=== PATIENT | male | born 1980 | race Caucasian/White ===

== ENCOUNTER 2024-01-12 18:35 | Emergency (ER) | payer BC ==
[~2024-01-12] VITALS: Ht 182.9 cm; Wt 72.7 kg
[~2024-01-12 18:35] MED LIST: BACTRIM DS 8001 TAB PO; PERCOCET 325 MG1 TA2 PO
[2024-01-12 18:39] VITALS: TEMP 98.6
[2024-01-12] MEDS ORDERED: Ondansetron 4 MG/2 ML VIAL IV ONE (19:00)
[2024-01-12] MEDS ORDERED: Bacitracin Topical Oint 30 GM TUBE TOP ONE (19:00)
[2024-01-12] MEDS ORDERED: NS 1,000 ML IV ONE (19:00)
[2024-01-12] MEDS ORDERED: Morphine 4 MG/ML VIAL IV ONE ×2 (19:00→21:00)
[2024-01-12 19:33] LABS: BASO # 0.1 K/mm3 (0.0-0.2); BASO % 0.8 % (0.0-2.0); EOS # 0.1 K/mm3 (0.0-0.7); EOS % 1.2 % (0.0-4.0); GRAN # 5.2 K/mm3 (1.4-6.5); GRAN % 63.7 % (42.2-75.2); HEMATOCRIT 40.5 % (42.0-52.0); HEMOGLOBIN 14.3 g/dl (13.5-18.0); LYMPH # 2.2 K/mm3 (1.2-3.4); LYMPH % 26.5 % (20.0-51.0); MEAN CELL VOLUME 99 fl (80.0-100.0); MEAN CORPUSCULAR HEMOGLOBIN 35 pg (27-31); MEAN CORPUSCULAR HGB CONC 35 g/dl (33.0-37.0); MONO # 0.6 K/mm3 (0.1-0.6); MONO % 7.6 % (1.7-9.3); PLATELET COUNT 233 K/mm3 (130-400); RED BLOOD COUNT 4.11 M/mm3 (4.20-5.60); REDCELL DISTRIBUTION WIDTH-CV 12.1 % (11.5-14.5)
[2024-01-12 19:58] LABS: ALBUMIN 4.3 g/dL (3.5-5.0); BILIRUBIN,TOTAL 0.4 mg/dL (0.2-1.2); CREATININE, serum 0.79 mg/dL (0.72-1.25); POTASSIUM 3.7 mEq/L (3.5-4.5); TOTAL PROTEIN 6.7 g/dl (6.2-8.1)
[2024-01-12] MEDS ORDERED: ZOFRAN ODT4 MG PO (21:33)
[2024-01-12] MEDS ORDERED: Home oxyCODONE/Acetaminophen 5/325 MG #4 TAB/PACK PO ONE (21:45)
[2024-01-12 22:05] VITALS: BP 115/77; PULSE 92
== END 2024-01-12 22:00 | disposition home or self-care (01) ==
LOC: COL.ER 18:35
PROVIDERS: Emergency Medicine
DX: S82.102A Unspecified fracture of upper end of left tibia, initial encounter for closed fracture (principal); V22.49XA Other motorcycle driver injured in collision with two- or three-wheeled motor vehicle in traffic accident, initial encounter; Y92.410 Unspecified street and highway as the place of occurrence of the external cause
CPT/HCPCS: J2270; J2405; J7030; L1830; L1846